=== PATIENT | female | born 1950 | race Two or more races ===

== ENCOUNTER 2020-03-08 07:32 | Day surgery (SDC) | payer MEDICARE, MEDICAID ==
[2020-03-06 08:40] LABS: ANION GAP 6 mmol/L (5-15); BLOOD UREA NITROGEN 14 mg/dL (7-18); CALCIUM 9.2 MG/DL (8.5-10.1); CARBON DIOXIDE 30 MMOL/L (21-32); CHLORIDE 107 MMOL/L (98-107); CREATININE 0.8 MG/DL (0.55-1.30); INR 0.9 (0.9-1.1); POTASSIUM 4.4 MMOL/L (3.5-5.1); SODIUM 143 MMOL/L (136-145)
[2020-03-06 08:47] LABS: BASOPHILS % (AUTO) 1.6 % (0.0-2.0); EOSINOPHILS % (AUTO) 3.5 % (0.0-3.0); HEMATOCRIT 40.6 % (37.0-47.0); HEMOGLOBIN 14.4 G/DL (12.0-16.0); LYMPHOCYTES % (AUTO) 33.9 % (20.0-45.0); MEAN CORPUSCULAR VOLUME 87 FL (80-99); MONOCYTES % (AUTO) 7.6 % (1.0-10.0); NEUTROPHILS % (AUTO) 53.4 % (45.0-75.0); PLATELET COUNT 268 K/UL (150-450); RED BLOOD COUNT 4.68 M/UL (4.20-5.40); RED CELL DISTRIBUTION WIDTH 11.7 % (11.6-14.8); WHITE BLOOD COUNT 4.7 K/UL (4.8-10.8)
--- NOTE | 2020-03-06 09:39 | Pre-Procedure Note/Attestation ---
Pre-Procedure Note/Attestation Complete Prior to Procedure Planned Procedure: right Procedure Narrative: Cataract Extraction With IOL Implant Right Eye Indications for Procedure Pre-Operative Diagnosis: Nuclear sclerotic cataract right eye Attestation I attest that I discussed the nature of the procedure; its benefits; risks and complications; and alternatives (and the risks and benefits of such alternatives ), prior to the procedure, with the patient (or the patient's legal customer service representative teller). I attest that, if there was a reasonable possibility of needing a blood transfusion, the patient (or the patient's legal customer service representative teller) was given the [facility] standardized written summary, pursuant to the Anuj Montverde Blood Safety Act ([place] Health and Safety Code # 1645, as amended). I attest that I re-evaluated the patient just prior to the surgery and that there has been no change in the patient's H&P, except as documented below: Ronn Leblanc MD March 06, 2020 09:39
--- NOTE | 2020-03-06 09:58 | Opthalmology H&P ---
Ophthalmology H&P H&P Chief Complaint: decreased vision in right eye HPI Vision Affects Ability to: read, manage personal affairs Past Ocular History: retinal problems - CRVO/ME OD, other - [place] vitrectomy with endolaser OD 2015 HPI Narrative Blurry vision Exam Visual Acuity: OD Counting Fingers OS 20/25 Tension: OD 11 OS 12 Eye Exam: normal OU: external exam, palpebral fissure-width, marginal reflex distance, levator function, corneas, anterior chambers, fundus exam - CRVO/ME OD ; findings: lens - NS Cataracts OU, fundus exam - CRVO/ME OD Assessment/Plan Treatment Plan: cataract extraction w/ lens implant Goals of Treatment: improvement of vision, enhance quality of life Attestation Attestation The risks and benefits of the surgery as well as alternative procedures were explained to the patient in detail. Ronn Leblanc MD March 06, 2020 09:58
--- NOTE | 2020-03-07 17:15 | Pre-op HX & Phy Repo 2 SIG ---
DATE OF ADMISSION: 03/08/2020 DATE OF EVALUATION: March 06, 2020. REASON FOR EVALUATION: I was asked by Dr. Ronn Leblanc to see this 70-year-old female who is going for elective surgery on the right eye. The patient has nuclear sclerotic cataract, right eye, and going for elective surgery on March 08, 2020. The patient was evaluated in outpatient procedure, [facility]. PAST MEDICAL HISTORY/REVIEW OF SYSTEMS: Remarkable for osteoporosis, osteoarthritis, hyperlipidemia. No history of hypertension. Denies history of heart attack, chest pain, or palpitation. No lung problem, asthma, or bronchitis. No history of stroke. No history of diabetes or hyperthyroidism or thyroid problem. No anemia. SURGICAL HISTORY: Remarkable for cholecystectomy, total hysterectomy, and left eye cataract surgery. FAMILY HISTORY: Father from heart attack. Mother has cancer of the stomach. ALLERGIES: Not known. PRESENT MEDICATIONS: Omeprazole 20 mg, Fosamax 70 mg, simvastatin. HABITS: Denies history of smoke or alcohol habits. PHYSICAL EXAMINATION: GENERAL: Patient is alert. VITAL SIGNS: Blood pressure 149/74, temperature 97.5, pulse 68, respirations 18, O2 saturation 99% on room air. SKIN: Clear, dry, warm. No diaphoresis or rashes. LYMPH NODES: Not enlarged. HEENT: Head normocephalic, atraumatic. Ears, clear. No discharge. Eyes, full description per Dr. Ronn Leblanc. Mouth, clear, moist. No dentures. NECK: Supple. No jugular venous distention. Carotid artery +2. Trachea midline. CHEST: No deformity or asymmetry. LUNGS: Clear to auscultation, percussion. No rales or rhonchi. HEART: Sinus rhythm. No ectopy. No murmur. No S3, S4. ABDOMEN: Soft, benign. Liver and spleen not enlarged. No rebound. EXTREMITIES: Osteoarthritis, knee and shoulder. No deformity or edema. GENITOURINARY: No dysuria. CVA nontender. NERVOUS SYSTEM: No tremor. No nystagmus. Electrocardiogram, sinus, 70 per minute, possible anterior MT, old. LAB WORK: Collected and pending. IMPRESSION: 1. Nuclear sclerotic cataract, left eye. 2. Osteoporosis. 3. Osteoarthritis. 4. Possible anterior old myocardial infarction, but EKG clinically negative. PLAN: Cataract extraction with intraocular lens implant per Dr. Ronn Leblanc. Patient should be NPO on February for surgery. CONCLUSION: Patient is a 70-year-old female with normal vital signs, has EKG changes, anterior MT, probably old. Patient is asymptomatic. Patient's condition is optimized for surgery. Thank you very much Dr. Leblanc for the privilege to participate in presurgical care of this interesting patient. Sarahi Shea M.D. DR: ALPESH JOB#: [id number] CC:
[~2020-03-08] VITALS: Ht 157.5 cm; Wt 68.0 kg
[2020-03-08] VITALS (8 sets, daily range): BP systolic 141–160; BP diastolic 77–90
[~2020-03-08 07:32] MED LIST: Akten 3.5% 1ml Btl RIGHT EYE ONE; FOSAMAX70 MG ORAL; OMEPRAZOLE40 M1 ORAL; Proparacaine 0.5% Opth Soln 15ml RIGHT EYE ONE; SIMVASTATIN20 MG ORAL; Tetracaine 0.5% Opth 4ml Soln RIGHT EYE ONE
[2020-03-08] MEDS ORDERED: BSS 500ml btl ONE (07:36)
[2020-03-08] MEDS ORDERED: Sodium Hyaluronate 10 mg/ml 0.85ml ONE (07:36)
[2020-03-08] MEDS ORDERED: EPINEPHrine 1mg/1ml Amp ONE (07:36)
[2020-03-08] MEDS ORDERED: Povidone-Iodine 5% opth solution ONE (07:36)
[2020-03-08] MEDS ORDERED: BSS 15ml BTL ONE (07:36)
[2020-03-08] MEDS: Tropicamide 1% Opth 15ml Soln RIGHT EYE SCH ×3 (08:00→08:15)
[2020-03-08] MEDS: Diclofenac Sod 0.1% Op Soln RIGHT EYE SCH ×3 (08:01→08:16)
[2020-03-08] MEDS: Cyclopentolate 1% Opth Sol 2ml RIGHT EYE SCH ×3 (08:01→08:16)
[2020-03-08] MEDS: Phenylephrine 10% Opth Soln 5ml RIGHT EYE SCH ×3 (08:01→08:15)
[2020-03-08] MEDS: Tobramycin Op Soln 0.3% 5ml RIGHT EYE SCH ×3 (08:01→08:16)
[2020-03-08] MEDS ORDERED: LR 1000ml 1,000 ML IVLG SCH (08:12)
--- NOTE | 2020-03-08 08:12 | Anethesia Preoperative Eval ---
Anesthesia Pre-op PMH/ROS General Date of Evaluation: March 08, 2020 Anesthesiologist: Chirag ASA Score: ASA 2 Mallampati Score Class I : Soft palate, uvula, fauces, pillars visible Class II: Soft palate, uvula, fauces visible Class III: Soft palate, base of uvula visible Class IV: Only hard plate visible Mallampati Classification: Class II Surgeon: Deana Diagnosis: Right cataract Surgical Procedure: Right cataract extraction with IOL Anesthesia History: none Family History: no anesthesia problems Allergies: Coded Allergies: No Known Allergies (Unverified , 03/06/20) Medications: see eMAR Patient NPO?: Yes NPO Date: March 08, 2020 NPO Time: 00:00 Past Medical History Cardiovascular: Reports: HTN, other - HLD; Denies: CAD, VT, valve dz, arrhythmia Pulmonary: Denies: asthma, COPD, ANN, other Gastrointestinal/Genitourinary: Reports: GERD; Denies: CRI, ESRD, other Neurologic/Psychiatric: Reports: other - migraines; Denies: dementia, CVA, depression/anxiety, TIA Endocrine: Denies: DM, hypothyroidism, steroids, other HEENT: Denies: cataract (L), cataract (R), glaucoma, SAVOONGA (L), SAVOONGA (R), other Hematology/Immune: Denies: anemia, DVT, bleeding disorder, other Musculoskeletal/Integumentary: Reports: OA, DJD; Denies: RA, DDD, edema, other PSxH Narrative: hortensia, nash, rigth eye sx Anesthesia Pre-op Phys. Exam Physician Exam see chart Constitutional: NAD Cardiovascular: RRR Respiratory: CTA Airway Exam Mallampati Score: Class II MO: full ROM: full Anesthesia Pre-op A/P Labs see chart Studies Pre-op Studies: EKG - sr Risk Assessment & Plan Assessment: ASA II Plan: MAC Status Change Before Surgery: No Pre-Antibiotics Drug: N/A Jaclyn Beard MD March 08, 2020 08:12
[2020-03-08] MEDS ORDERED: DiphenhydrAMINE 50mg/ml Inj IVP PRN (08:15)
[2020-03-08] MEDS ORDERED: fentaNYL 100 mcg/2 mL IV ONE (10:48)
[2020-03-08] MEDS ORDERED: Lidocaine 1% MPF 10mg/ml 5ml ONE (10:48)
[2020-03-08] MEDS ORDERED: Sterile Water Irrig 1000ml IRRIG ONE (11:00)
[2020-03-08] MEDS ORDERED: Dexamethasone 4mg/ml vial ONE (11:00)
[2020-03-08] MEDS ORDERED: prednisoLONE acetate 1% Opth Susp 1ml ONE (11:00)
[2020-03-08] MEDS ORDERED: Polysporin Oint 15gm TOPIC ONE (11:00)
[2020-03-08] MEDS ORDERED: Pilocarpine 1% Opth 15ml Soln ONE (11:00)
[2020-03-08] MEDS ORDERED: NS Irrig 1000ml ONE (11:00)
[2020-03-08] MEDS ORDERED: LR 1000ml ONE (11:00)
--- NOTE | 2020-03-08 12:15 | Immediate Post-Op Evaluation ---
Immediate Post-Op Evalulation Immediate Post-Op Evalulation Procedure: Right cataract extraction with iOL Date of Evaluation: March 08, 2020 Time of Evaluation: 12:17 IV Fluids: 300 Blood Products: 0 Estimated Blood Loss: 0 Urinary Output: 0 Blood Pressure Systolic: 146 Blood Pressure Diastolic: 79 Pulse Rate: 64 Respiratory Rate: 16 O2 Sat by Pulse Oximetry: 99 Temperature (Fahrenheit): 98.1 Pain Score (1-10): 0 Nausea: No Vomiting: No Complications 0 Patient Status: awake, reacts, patent, none Hydration Status: adequate Drug: N/A Jaclyn Beard MD March 08, 2020 12:15
--- NOTE | 2020-03-08 12:15 | 48 Hour Post Anesthesia Eval ---
Post Anesthesia Evaluation Procedure: Right cataract extraction with iOL Date of Evaluation: March 08, 2020 Nausea: No Vomiting: No Pain Intensity: 0 Hydration Status: adequate Cardiopulmonary Status: at baseline Mental Status/LOC: patient returned to baseline Post-Anesthesia Complications: 0 Follow-up care needed: ready to discharge Jaclyn Beard MD March 08, 2020 12:15
--- NOTE | 2020-03-08 14:07 | Brief Operative Note ---
Immediate Post Operative Note Operative Note Chief Complaint: Blurry vision Pre-op Diagnosis: Nuclear sclerotic cataract right eye Procedure: Cataract extraction with IOL implant right eye Post-op Diagnosis: Pseudophakia OD Findings: other - Dense +4 complicated cataract Surgeon: Ronn Leblanc MD Anesthesiologist: Jaclyn Beard MD Anesthesia: MAC Specimen: none Complications: none Condition: stable Fluids: LR Estimated Blood Loss: none Drains: none Implant(s) used?: Yes - IOL-OD Ronn Leblanc MD March 08, 2020 14:07
--- NOTE | 2020-03-08 14:11 | Operative Note - PDOC ---
Operative Note Operative Note Date of Operation/Procedure: March 08, 2020 Chief Complaint: Blurry vision Pre-op Diagnosis: Nuclear sclerotic cataract right eye Procedure: Cataract extraction with IOL implant right eye Post-op Diagnosis: Pseudophakia OD Operative Findings: other - Dense +4 complicated cataract Surgeon: Ronn Leblanc MD Anesthesiologist: Jaclyn Beard MD Anesthesia: MAC Specimen: none Complications: none Condition: stable Fluids: LR Estimated Blood Loss: none Drains: none Implant(s) used?: Yes - IOL-OD Indications for Procedure Nuclear sclerotic cataract right eye Description of Procedure This patient has been complaining visually significant cataract in the right eye with the best corrected visual acuity of counting fingers at 3 feet. The patient complains of difficulties with glare in performing activities of daily living and wants to manage personal affairs with comfort and accuracy and see well enough to move with safety at home and outdoors independently The risks, benefits and alternatives of the procedure were discussed with the patient in the office prior to scheduling surgery. All questions from the patient were answered after the surgical procedure was explained in detail. The risks of the procedure as explained to the patient include, but are not limited to, pain, infection, bleeding, loss of vision, retinal detachment, need for further surgery, loss of lens nucleus, double vision, etc. Alternative procedures were discussed which include, to do nothing or seek a second opinion. Informed consent for this procedure was obtained from the patient. The patient was referred to a primary care physician for a cardiopulmonary clearance prior to surgery, after proper evaluation was done patient was properly scheduled for outpatient surgery. The patient was brought to the operating room where the anesthesiologist established I.V. lines and cardiac monitoring leads. Mild intravenous sedation was administered. The patient was then prepared with a 5% solution of povidone -iodine to the conjunctival fornix and lashes, and a 5% solution of povidone- iodine to the lids and periorbital skin. The patient was then draped in the usual sterile fashion. A lid speculum was then placed in the operative eye. A keratome blade was then used to create a biplanar incision into the anterior chamber. Viscoelastics was then instilled into the anterior chamber. A 3-mm single pass clear corneal incision was made just anterior to the vascular arcade of the temporal limbus using a keratome. Anterior capsulorrhexis was created. The nucleus was hydrodissected and hydrodelineated, and was freely movable in the capsular bag. The lens nucleus was then phacoemulsified. Following the deep groove formation , the lens was split bimanually and the resultant quadrants and epicortex removed under vacuum burst-mode phacoemulsification. Peripheral cortex was removed with the irrigation and aspiration handpiece. The capsular bag was expanded with viscoelastic. The implant was check for proper power and sized. The implant was inspected under the microscope and found to be free of defects. The implant was inserted into the cartridge system under viscoelastic and placed in the capsular bag. The trailing haptic was positioned with the cartridge system. Viscoelastics was removed from the anterior chamber using the irrigation and aspiration unit. The corneal wound was then tested for leaks and none were found. The lid speculum were then removed. Sponge and needle counts were correct. An eye patch and shield were placed over the operative eye. The patient was taken to the recovery room in stable condition. There were no complications. The patient tolerated the procedure well. The patient was then transferred to the ambulatory surgery unit in stable and satisfactory condition , was given detailed written instructions and asked to follow up in the office the next day. Ronn Leblanc MD March 08, 2020 14:11
== END 2020-03-08 13:45 | disposition home or self-care (01) ==
LOC: SUR 07:32
DX: H25.11 Age-related nuclear cataract, right eye (principal); H26.20 Unspecified complicated cataract; E78.5 Hyperlipidemia, unspecified; M81.0 Age-related osteoporosis without current pathological fracture; M19.90 Unspecified osteoarthritis, unspecified site; Z90.49 Acquired absence of other specified parts of digestive tract; Z90.710 Acquired absence of both cervix and uterus
CPT/HCPCS: 36415; 80048; 85025; 85610; 85730; 93005; 94003; 94150